=== PATIENT | female | born 1975 | race Caucasian/White ===

== ENCOUNTER 2020-12-13 12:11 | Emergency (ER) | payer SELFPAY ==
[2020-12-13 12:12] VITALS: BP 127/87; PULSE 101; RESP 19; TEMP 36; O2SAT 97
--- NOTE | 2020-12-13 13:14 | ED.DENTAL ---
HPI - Dental/Oral General Chief complaint: Dental/Oral Stated complaint: I have a bad tooth Time Seen by Provider: 12/13/20 12:21 Source: patient Mode of arrival: ambulatory Limitations: no limitations History of Present Illness HPI Narrative: This is a 45 year old female that presents to the ER for toothache x 3 days. Associated with swelling and redness. Denies fever. MD Complaint: tooth pain Location: Tooth # (4) Related Data Allergies Allergy/AdvReac Type Severity Reaction Status Date / Time No Known Allergies Allergy Verified 12/13/20 12:18 Review of Systems Review of Systems: Narrative: CONSTITUTIONAL: Denies fever ENT: Reports dentalgia All systems reviewed & are unremarkable except as noted in HPI and below PMFSH Surgical History Surgical History (Updated 12/13/20 @ 13:29 by Izzy Bhardwaj PA-C) History of myringotomy Social History Social History (Updated 12/13/20 @ 13:30 by Izzy Bhardwaj PA-C) Smoking status: Current every day smoker Exam Narrative: Exam Narrative: GENERAL: Well-appearing, well-nourished, and in no acute distress. HEAD: Normocephalic, atraumatic. EYES: EOMI. ENT: Nares clear, no rhinorrhea or epistaxis. Mucous membranes moist. Oropharynx without tonsillar hypertrophy exudate or other lesions. Poor dentition. Tooth #4 tender to palpation with surrounding erythema and edema with central fluctuance NECK: Supple. No adenopathy or masses. CHEST: Airway patent EXTREMITIES: Normal range of motion. No edema. SKIN: Warm, dry, no rash. NEURO: No focal deficits. Alert and oriented x3. PSYCH: Normal mood and affect Course Vital Signs Vital signs: Vital Signs Temperature 96.8 F L 12/13/20 12:12 Pulse Rate 101 H 12/13/20 12:12 Respiratory Rate 19 12/13/20 12:12 Blood Pressure 127/87 12/13/20 12:12 Pulse Oximetry 97 12/13/20 12:12 Temperature 96.8 F L 12/13/20 12:12 Pulse Rate 101 H 12/13/20 12:12 Respiratory Rate 19 12/13/20 12:12 Blood Pressure 127/87 12/13/20 12:12 Pulse Oximetry 97 12/13/20 12:12 Procedures Abscess I/D oral: Date of Incision: 12/13/20 Time of Incision: 13:49 Local Anesthetic: none (Cetacaine) Technique: incised with #11 blade Packing used?: none I&D Results: Pus and Blood MDM - Dental/Oral MDM Narrative Medical decision making narrative: Patient presents the emergency department for dental abscess. She is afebrile and nontoxic-appearing. Successfully drained. Patient will be started on oral antibiotics. She was instructed to follow-up with a dentist. She was given warnings to return to the ER Critical Care Time Critical Care Time Critical Care Time: No Discharge Plan Discharge Clinical Impression: Dental abscess Patient Disposition: Home, Self-Care Condition: Stable Instructions: Antibiotic Form, Dental Abscess (ED) Additional Instructions: Return if symptoms worsen or concerns: any increase in redness, swelling, pain, or fever over 101 Take antibiotics as directed. [id number] pain medication as needed Follow up with your dentist Prescriptions: New amoxicillin-pot clavulanate 875-125 mg tablet 1 tablet PO Q12H 7 Days Qty: 14 RF: 0 Follow-up/Referrals: Jorge Alberto,Gifty Thomas MD [Primary Care Provider] -
== END 2020-12-13 14:00 | disposition home or self-care (01) ==
PROVIDERS: Emergency Provider Emergency Medicine; PCP Family Medicine
DX: K04.7 Periapical abscess without sinus (principal); F17.200 Nicotine dependence, unspecified, uncomplicated
CPT/HCPCS: 41800; 99283; A9270